=== PATIENT | male | born 1960 | race Caucasian/White ===

== ENCOUNTER 2021-05-05 11:31 | Inpatient (IN) ==
[2021-05-05] MEDS ORDERED: 0.9 % Sodium Chloride 1,000 ML IV ONE (12:40)
[2021-05-05 13:29] LABS: Basophils % 0.3 %; Hematocrit 54.3 % (37.5-50.1); Hemoglobin 16.1 g/dL (12.9-16.9); Immature Granulocytes % 0.3 % (0-4); Lymphocytes # 2.1 K/mcL (0.6-4.6); Lymphocytes % 27.3 %; Mean Corpuscular HGB Conc 29.7 g/dL (31.6-35.5); Mean Corpuscular Hemoglobin 25.5 pg (28.0-33.3); Mean Corpuscular Volume 86.1 fL (83.0-100.0); Mean Platelet Volume 10.1 fL (9.4-12.4); Monocytes # 0.6 K/mcL (0.0-1.3); Monocytes % 7.1 %; Neutrophils # 5.1 K/mcL (1.6-8.9); Platelet Count 226 K/mcL (140-400); Red Blood Count 6.31 M/mcL (4.19-5.50); White Blood Count 7.8 K/mcL (4.3-11.1)
[2021-05-05 14:02] LABS: Influenza A PCR Negative (Negative); Influenza B PCR Negative (Negative); Resp. Syncytial Virus PCR Negative (Negative)
[2021-05-05 14:05] LABS: Alanine Aminotransferase 34 Units/L (7-52); Albumin 3.9 g/dL (3.5-5.7); Albumin/Globulin Ratio 1.1 (1.1-2.2); Alkaline Phosphatase 71 Units/L (34-104); Aspartate Amino Transferase 24 Units/L (13-39); BUN/Creatinine Ratio 32 (6-26); Bilirubin,Total 0.4 mg/dL (0.3-1.0); Blood Urea Nitrogen 120 mg/dL (6-20); Carbon Dioxide 29 mEq/L (23-29); Chloride 93 mEq/L (98-107); Globulin 3.4 g/dL (2.4-3.5); Glucose 275 mg/dL (70-105); Osmolality,Calculated 324 (280-300); Sodium 133 mEq/L (136-145); Total Protein 7.3 g/dL (6.4-8.9); Troponin I < 0.03 ng/mL (< 0.04); eGFR For African Americans 20 (> 60); eGFR For Non-African Americans 17 (> 60)
[2021-05-05 14:09] LABS: SARS-CoV-2 by PCR (In House) Negative (Negative)
[2021-05-05] MEDS ORDERED: Naloxone 0.4 MG/ML INJ IVP PRN (15:14)
[2021-05-05] MEDS ORDERED: Dextrose Gel 15 GM/37.5 ML TUBE PO PRN ×2 (17:11)
[2021-05-05] MEDS ORDERED: *HR* Dextrose 50 % in Water (Syg) 50 ML SYRINGE IVP PRN (17:11)
[2021-05-05] MEDS ORDERED: D5% in Water 1,000 ML IVC PRN (17:11)
[2021-05-05] MEDS ORDERED: 0.9 % Sodium Chloride 1,000 ML IVC SCH (17:15)
[2021-05-05] MEDS: Insulin LISPRO 300 UNITS/3 ML VIAL SUBQ SCH ×2 (17:54→21:56)
[2021-05-05] MEDS ORDERED: Ipratropium/Albuterol Neb 3 ML IH PRN (18:16)
[2021-05-06] MEDS: *HR* Heparin 5,000 UNIT/ML VIAL SQ SCH ×2 (05:09→17:11)
[2021-05-06 07:03] LABS: Hematocrit 50.1 % (37.5-50.1); Hemoglobin 14.9 g/dL (12.9-16.9); Mean Corpuscular HGB Conc 29.7 g/dL (31.6-35.5); Mean Corpuscular Hemoglobin 25.3 pg (28.0-33.3); Mean Corpuscular Volume 85.1 fL (83.0-100.0); Mean Platelet Volume 10.7 fL (9.4-12.4); Platelet Count 205 K/mcL (140-400); Red Blood Count 5.89 M/mcL (4.19-5.50); Red Cell Distribution Width 15.8 % (11.5-14.5); White Blood Count 7.6 K/mcL (4.3-11.1)
[2021-05-06 07:40] LABS: Calcium 10.2 mg/dL (8.6-10.3); Potassium 4.8 mEq/L (3.5-5.1)
[2021-05-06] MEDS: Insulin LISPRO 300 UNITS/3 ML VIAL SUBQ SCH ×4 (08:48→20:30)
[2021-05-06] MEDS ORDERED: NON-FORMULARY MEDICATION 1 EACH EACH (Ezetimibe [Zetia] 10 MG Tablet) PO SCH (09:30)
[2021-05-06] MEDS: Isosorbide MONOnitrate (24 HR) 60 MG TAB.ER.24H PO SCH (11:57)
[2021-05-06] MEDS: BuPROPion XL (24 HR) 150 MG TABLET PO SCH (11:57)
[2021-05-06] MEDS: Loratadine 10 MG TABLET PO SCH (11:57)
[2021-05-06] MEDS ORDERED: Melatonin 3 MG TABLET PO PRN (16:33)
[2021-05-06] MEDS ORDERED: Insulin DETEMIR 100 UNIT/ML X5UNITS SUBQ SCH (21:00)
[2021-05-07 01:58] LABS: Hematocrit 49.7 % (37.5-50.1); Mean Corpuscular HGB Conc 30.2 g/dL (31.6-35.5); Mean Corpuscular Hemoglobin 25.7 pg (28.0-33.3); Mean Corpuscular Volume 85.2 fL (83.0-100.0); Mean Platelet Volume 10.5 fL (9.4-12.4); Platelet Count 184 K/mcL (140-400); Red Blood Count 5.83 M/mcL (4.19-5.50); Red Cell Distribution Width 15.8 % (11.5-14.5); White Blood Count 5.4 K/mcL (4.3-11.1)
[2021-05-07 02:21] LABS: Calcium 10.5 mg/dL (8.6-10.3); Potassium 5.1 mEq/L (3.5-5.1)
[2021-05-07 02:34] LABS: Estimated Average Glucose 232 mg/dl; Hemoglobin A1C 9.7 %
[2021-05-07] MEDS: *HR* Heparin 5,000 UNIT/ML VIAL SQ SCH (06:28)
[2021-05-07] MEDS: Isosorbide MONOnitrate (24 HR) 60 MG TAB.ER.24H PO SCH (08:14)
[2021-05-07] MEDS: Loratadine 10 MG TABLET PO SCH (08:14)
[2021-05-07] MEDS: BuPROPion XL (24 HR) 150 MG TABLET PO SCH (08:14)
[2021-05-07] MEDS: Insulin LISPRO 300 UNITS/3 ML VIAL SUBQ SCH (08:20)
[2021-05-07] MEDS ORDERED: INSULIN PUMP SQ SCH (08:45)
[2021-05-07 10:45] VITALS: BP 106/66; PULSE 95; TEMP 97.6; O2SAT 91
== END 2021-05-07 15:09 | disposition home or self-care (01) | DRG 918 ==
LOC: EMEROOARM 11:31 → 2ANU 11:31 → SUATTDRO 17:35 → 2ANU 18:21
PROVIDERS: ADMIT Internal Medicine; ATTEND Internal Medicine